=== PATIENT | male | born 1985 | race Caucasian/White ===

== ENCOUNTER 2019-04-01 17:09 | Inpatient (IN) ==
[2019-04-01 20:28] LABS: Basophils # 0.1 10*3/uL (0.0-0.2); Basophils % 0.5 % (0.0-0.8); Eosinophils # 0.4 10*3/uL (0.0-0.87); Eosinophils % 3.4 % (0.00-10.9); Hematocrit 47.3 VOL% (42.0-52.0); Hemoglobin 16.2 GM/DL (14.0-18.0); Immature Granulocytes % 0.4 %; Immature Granulocytes Absolute 0.05 #; Lymphocytes # 3.5 10*3/uL (1.4-4.0); Lymphocytes % 30.7 % (21.2-54.2); Mean Corpuscular HGB Conc 34.2 GM/DL (32-36); Mean Corpuscular Volume 87.6 FL (87-102); Mean Platelet Volume 8.8 FL (9.6-12.0); Monocytes % 4.7 % (1.7-12.7); Neutrophils % 60.3 % (38.7-73.9); Platelet Count 265 T/CUMM (130-400); Red Cell Distribution Width 12.4 % (9.3-17.3); White Blood Count 11.2 T/CUMM (4-12)
[2019-04-01 20:49] LABS: Alanine Aminotransferase 25 U/L (16-61); Albumin 4.6 G/DL (3.4-5.0); Alkaline Phosphatase 85 U/L (45-117); Aspartate Amino Transferase 18 U/L (0-37); Blood Urea Nitrogen 13 MG/DL (7-18); Calcium 9.4 MG/DL (8.5-10.1); Glucose 112 MG/DL (74-106); Osmolality,Calculated 279.4 MOS/KG (273-304); Total Protein 7.4 G/DL (6.4-8.3); Troponin I < 0.015 NG/ML (0.00-0.045)
[2019-04-01] MEDS ORDERED: MORPHINE 4 MG/1 ML VIAL IV STA (21:18)
[2019-04-01] MEDS ORDERED: ONDANSETRON 4 MG/2 ML VIAL IV STA (21:19)
[2019-04-01] MEDS ORDERED: ONDANSETRON 4 MG/2 ML VIAL IV PRN (22:30)
[2019-04-01] MEDS ORDERED: ACETAMINOPHEN 325 MG TABLET PO PRN (22:30)
[2019-04-01 22:41] LABS: PT Patient Result 10.7 SECS; Partial Thromboplastin Time 28.5 SECS (0-40)
[2019-04-01] MEDS: HEPARIN DRIP 25,000 UNITS/500 ML PREMIX IV SCH (23:10)
[2019-04-02] MEDS ORDERED: PANTOPRAZOLE 40 MG VIAL IV SCH (09:00)
[2019-04-02] MEDS: HEPARIN DRIP 25,000 UNITS/500 ML PREMIX IV SCH ×2 (15:40→23:13)
[2019-04-02] MEDS ORDERED: ZIPRASIDONE 20 MG/1 ML VIAL IM ONE ×2 (18:14→21:00)
[2019-04-02] MEDS ORDERED: AMITRIPTYLINE 25 MG TABLET PO SCH (21:00)
[2019-04-03 05:27] LABS: Partial Thromboplastin Time 61.1 SECS (0-40)
[2019-04-03] MEDS ORDERED: RIVAROXABAN 10 MG TABLET PO SCH (09:00)
[2019-04-03 12:20] VITALS: BP 107/74
[2019-04-04 12:05] LABS: Protein C Activity Plasma 86 % (70 - 150)
[2019-04-05 15:30] LABS: F5DNA Reviewed By SEE COMMENTS; Factor V Leiden (R506Q) Mutati Negative (Negative)
[2019-04-05 16:01] LABS: Protein S Activity Plasma 93 % (65 - 160)
[2019-04-08 15:06] LABS: Phospholipid Ab IgM, S < 9.4 MPL
[2019-04-09 15:10] LABS: DRVVT Screen Ratio 0.8 ratio (0.0 - 1.1); INR 1.1
[2019-04-11 15:41] LABS: Reptilase Time, P 17 sec (14 - 23); Thrombin Time (Bovine), P > 300 sec (15 - 23)
== END 2019-04-03 13:05 | disposition home or self-care (01) | DRG 156 ==
LOC: N.EDINP 17:09 → N.ED 17:09 → SUPCPDRO 22:30 → N.4E 23:38
PROVIDERS: ADMIT Family Medicine; ATTEND Family Medicine